=== PATIENT | female | born 2000 | race Caucasian/White ===

== ENCOUNTER 2020-11-09 16:24 | Outpatient (CLI) | payer SELFPAY ==
[~2020-11-09] VITALS: Ht 167.6 cm; Wt 71.4 kg
[2020-11-09 15:50] VITALS: BP 125/69; PULSE 125; TEMP 98.4
--- NOTE | 2020-11-09 16:46 | NUR ---
1550 PATIENT HERE FOR COMPLAINTS OF CONTRACTIONS EVERY 3 MIN THAT ARE GETTING MORE PAINFUL. EFM ON FHT 150 BABY VERY ACTIVE WITH GOOD ACCELERATIONS. SVE 0/50/-3. NO PRENATEL CARE NOTED AND THINKS HER DUE DATE IS DEC 12. DR WILL CALLED WITH ALL ABOVE INFORMATION AND ORDERS GIVEN FOR FULL OB LAB PANEL AND IVF.
[2020-11-09 16:51] VITALS: BP 110/58; PULSE 113
[2020-11-09 17:10] LABS: MEAN CELL VOLUME 81 fl (80.0-95.0); MEAN CORPUSCULAR HGB CONC 31 g/dl (33.0-37.0); MEAN PLATELET VOLUME 10.7 fl (7.4-10.4); PLATELET COUNT 280 K/mm3 (130-400); RED BLOOD COUNT 3.45 M/mm3 (4.10-5.30); REDCELL DISTRIBUTION WIDTH-CV 14.4 % (11.5-14.5)
[2020-11-09 17:32] LABS: ALBUMIN 3.7 gm/dL (3.5-5.0); BILIRUBIN,TOTAL 0.5 mg/dL (0.0-1.0); CALCIUM 8.8 mg/dL (8.4-10.2); CREATININE, serum 0.37 (0.52-1.25); POTASSIUM 3.8 mmol/L (3.4-5.0); TOTAL PROTEIN 7.4 gm/dL (6.4-8.2)
[2020-11-09 17:37] LABS: TRICYCLIC ANTIDEPRESS URINE NEGATIVE
[2020-11-09 17:53] VITALS: PULSE 78
--- NOTE | 2020-11-09 17:55 | NUR ---
Lazaro WILL AT BEDSIDE TO DISCUSS AND EVALUATION. ORDERS TO DISMISS TO HOME. ALL DISCHARGE INSTRUCTIONS GIVEN WITH VERBAL UNDERSTANDING Yon SAUNDERS.
[2020-11-09 18:01] LABS: HEMATOCRIT 28.1 % (35.0-45.0); HEMOGLOBIN 8.8 g/dl (12.0-15.0); MEAN CORPUSCULAR HEMOGLOBIN 26 pg (26.0-32.0)
[2020-11-09 18:22] LABS: BAND 1 % (0-10); EOSINOPHIL 2 % (0-4); LYMPHOCYTE 15 % (20.0-51.0); MYELOCYTE 1 % (0-0); NEUTROPHILS 73 % (42.0-75.2); PLATELET ESTIMATE NORMAL (NORMAL)
[2020-11-09 18:23] LABS: HYPOCHROMIA 2+
[2020-11-09 18:35] LABS: THYROID STIMULATING HORMONE 1.251 uIU/mL (0.350-4.940)
[2020-11-10 07:54] LABS: PT G20210A MUTATION B Negative (Negative)
[2020-11-10 12:48] LABS: LUPUS ANTICOAGULANT INR 0.7 (0.7-1.3); LUPUS ANTICOAGULANT PT 10.1 Seconds (())
[2020-11-11 04:10] LABS: BETA-2 GPI IGG AABS <20.0 CU (<=20.0); BETA-2 GPI IGM AABS <20.0 CU (<=20.0)
[2020-11-11 06:18] LABS: TOXOPLASMA AB, IGM <3.0 AU/mL (0.0-7.9); TOXOPLASMA IGG VALUE Negative (Negative); TOXOPLASMA IGM VALUE Negative (Negative)
[2020-11-15 09:18] LABS: BETA 2 IGG-REFLEX <20.0; BETA 2 IGM-REFLEX <20.0
[2020-11-15 09:21] LABS: TOXOPLASMA AB, IGG <3.0 IU/mL (0.0-7.1)
[2020-11-23] MEDS ORDERED: PRENATAL TABLET PO (06:30)
[2020-11-23] MEDS ORDERED: IRON TABLETS325 MG PO (06:31)
[2020-11-24] MEDS ORDERED: IBU600 MG PO (08:48)
== END 2020-11-09 18:24 | disposition home or self-care (01) ==
LOC: LDRO 16:24 → LDR 16:51 → LDRO 18:24
PROVIDERS: Obstetrics & Gynecology
DX: O62.9 Abnormality of forces of labor, unspecified (principal); Z3A.35 35 weeks gestation of pregnancy
CPT/HCPCS: OP; J7120

== ENCOUNTER 2020-11-15 21:56 | Outpatient (CLI) | payer OTHER ==
--- NOTE | 2020-11-15 22:10 | NUR ---
Pt wheeled to LDR 3 with significant other. No care. Pt states "I just got things figured out with the doctor and I go see in 2 days." Pt reports second . First baby is 22months and denies any complications with that or baby. Pt states she thinks her due date is 12/11/20 according to her last period. Denies having any problems with this that she is aware of. Pt reports having constant lower pelvic pain that is brooks and aches. Denies leaking of fluids or vaginal bleeding. Reports good movement. VS and Assessment completed. 2230: update on pts status and reviews FHR strip. New orders recieved. 2232: Pt off monitor to try to get UA. 2301: at nurses station and reviews FHR and UA results. Orders received if pain is better or the same you do not have to check her cervix again. 2303: Pt reports pain is much better and denies really feeling any pain at all. Pt off the monitor to change. 2315: discharge education given. Pt denies questions and verbalizes her understanding. Pt ambulatory off unit and home with significant other
[2020-11-15 22:30] VITALS: BP 109/64; PULSE 104; TEMP 98.8
[2020-11-15 22:48] LABS: COLLECTION METHOD CLEAN CATCH
[2020-11-15 22:58] LABS: MUCOUS Present /lpf; PH 6 (5-8); SQUAMOUS EPITHELIAL 0-2 /hpf; URINE APPEARANCE Hazy; URINE BACTERIA None Seen /hpf; URINE BILIRUBIN Negative (NEGATIVE); URINE BLOOD Negative (NEGATIVE); URINE COLOR Yellow; URINE GLUCOSE Negative (NEGATIVE); URINE KETONE Negative (NEGATIVE); URINE LEUKOCYTE ESTERASE 2+ (NEGATIVE); URINE NITRATE Negative (NEGATIVE); URINE PROTEIN(semi-quant) 1+ (NEGATIVE); URINE RBC 0-2 /hpf; URINE UROBILINOGEN >=4.0 mg/dL (NEGATIVE)
[2020-11-15 23:02] VITALS: BP 104/59; PULSE 98
[2020-11-23] MEDS ORDERED: PRENATAL TABLET PO (06:30)
[2020-11-23] MEDS ORDERED: IRON TABLETS325 MG PO (06:31)
[2020-11-24] MEDS ORDERED: IBU600 MG PO (08:48)
== END 2020-11-15 23:15 | disposition home or self-care (01) ==
LOC: LDRO 21:56 → LDR 22:43 → LDRO 23:15
PROVIDERS: Student in an Organized Health Care Education/Training Program
DX: Z34.90 Encounter for supervision of normal pregnancy, unspecified, unspecified trimester (principal); Z3A.00 Weeks of gestation of pregnancy not specified
CPT/HCPCS: OP

== ENCOUNTER 2023-04-18 22:27 | Outpatient (CLI) | payer OTHER ==
[~2023-04-18] VITALS: Ht 167.6 cm; Wt 75.0 kg
[~2023-04-18 22:27] MED LIST: IBU600 MG PO; IRON TABLETS325 MG PO; PRENATAL TABLET PO
--- NOTE | 2023-04-18 22:40 | NUR ---
PT ARRIVED TO UNIT VIA WHEELCHAIR. PT DENIES LOF/VB. DOES HAVE GOOD MOVEMENT. THE PATIENT STATES SHE HAS BEEN RAHEEM FOR THE LAST 2 HOURS EVERY 4 MINUTES. PT TO BATHROOM TO URINATE AND CHANGE INTO A CLEAN GOWN. PT PLACED ON EFM. ON UNIT AND TO THE BEDSIDE AT 2042. DISCUSSION OF PLAN OF CARE WITH PATIENT, PT VERBALIZED UNDERSTANDING AND SVE PER IS /HIGH. THE PATIENT IS GIVEN A JUG OF WATER PER THIS RN AND REQUESTS THE PATIENT DRINK MUCH SHE CAN IN THE NEXT 30 MINUTES. PT VERBALIZED UNDERSTANDING. CALL LIGHT WITHIN REACH. NO OTHER CONCERNS REGARDING THE PATIENT AT PRESENT TIME.
[2023-04-18 23:47] VITALS: BP 110/65; PULSE 126; TEMP 98.7
--- NOTE | 2023-04-18 23:50 | NUR ---
DISCHARGED PATIENT PER ORDER WHO IS ON THE UNIT AND WATCHING THE PATIENT'S EFM STRIP. THE PATIENT HAS HAD A STABLE LABOR CHECK, NO SVE RECHECK PER 'S ORDER D/T REDUCED CONTRACTION PATTERN AFTER ORAL HYDRATION. THE PATIENT STATES SHE FEELS MUCH BETTER AND IS OK GOING HOME. DISCHARGE INFORMATION/EDUCATION AT THIS TIME. PT SIGNED OB DISCHARGE SUMMARY WITH UNDERSTANDING OF DISCHARGE INFO TO BE "DRINK PLENTY OF WATER, TAKE TYLENOL AND BENEDRYL. CALL THE DR FOR A FOLLOW-UP APPOINTMENT TOMORROW." THE PATIENT AMBULATED OFF THE UNIT AT 2355. NO OTHER CONCERNS REGARDING THIS PATIENT AT THE PRESENT TIME.
== END 2023-04-18 23:55 | disposition home or self-care (01) ==
LOC: LDRO 22:27
DX: Z34.90 Encounter for supervision of normal pregnancy, unspecified, unspecified trimester (principal); Z3A.00 Weeks of gestation of pregnancy not specified

== ENCOUNTER 2023-04-30 17:08 | Outpatient (CLI) | payer OTHER ==
[~2023-04-30] VITALS: Ht 167.6 cm; Wt 78.6 kg
[2023-04-30] MEDS ORDERED: LR 1,000 ML IV PRN (17:30)
[2023-04-30 17:38] VITALS: BP 117/66; PULSE 93; TEMP 97.5
--- NOTE | 2023-04-30 17:40 | NUR ---
[address] IN CAR STATING HAVING TO MUCH PAIN TO GET OUT AND PRESSURE. THIS NURSE TO ER TO EVALUATE. PATIENT SITTING IN CAR TALKING WITH FAMILY. PATIENT ASSISTED TO WHEELCHAIR ANDTO OB UNIT. PATIENT ASSIST TO BED AND MONITORS ON AT THIS TIME. FHT 120 BABY VERY ACTIVE. OCC CONTRACTIONS NOTED. PALPATED MILD. SVE /-2. AMNIOTRACE NEGATIVE. DR WILL CALLED AT THIS TIME AND ALL ABOVE INFORMATION GIVEN. ORDERS TO START IV AND GIVE 1000CC LR. 1730 IV STARTED IN LEFT HAND BY THIS NURSE. IVF BOLUS STARTED.
[2023-04-30 18:15] VITALS: BP 106/53; PULSE 81
--- NOTE | 2023-04-30 18:45 | NUR ---
IV removed. Discharge instructions and return precautions explained to patient, verbalized understanding. Pt seen ambulating off unit with spouse.
== END 2023-04-30 18:45 | disposition home or self-care (01) ==
LOC: LDRO 17:08
DX: O62.4 Hypertonic, incoordinate, and prolonged uterine contractions (principal); Z3A.37 37 weeks gestation of pregnancy
CPT/HCPCS: J7120